=== PATIENT | male | born 1985 | race Caucasian/White ===

== ENCOUNTER 2016-12-05 14:23 | Emergency (ER) | payer OTHER ==
[~2016-12-05] VITALS: Ht 190.5 cm; Wt 190.5 kg
--- NOTE | ~2016-12-05 | CR151 ---
[facility]. [facility] A Service of [facility] & [facility] RADIOLOGY TEXT RESULTS PATIENT: GAYATRI HARMAN LOCATION: SED : [birth year] UNIT #: [id number] AGE: [address]: Jaimee Pinedo SEX: M ORDER DR: [id number] [address] [address] [id number] E MR#: [id number] Acc #: [id number] NAME: GAYATRI HARMAN : 1985 SEX: M STUDY DATE/TIME: 12/05/2016 15:08 UNIT: SED ROOM: STUDY DESCRIPTION: CR Hip Min 2 Views Rt Attending Physician: Jaimee Pinedo Pa-C Ordering Physician: Physician Non-Staff Primary Care Physician: No Primary Care Physician MEDICAL IMAGING REPORT This report is preliminary unless electronic signature is present. EXAM Right hip 11/25/[address] [facility] [place], [place]. HISTORY 30-year-old male patient right hip pain starting this a.m. FINDINGS AP pelvis includes 2 projections with frog-leg lateral view of the right hip. Pelvic bone structure is intact. Hip joints are preserved with no degenerative narrowing or marginal osteophyte formation. Mineralization is preserved throughout. I see no cystic erosions. There is no lytic or blastic appearance. Bilateral sacroiliac joints are preserved. Large body habitus noted. IMPRESSION Negative right hip. No acute pelvic finding. Large body habitus. Dictated by... Yazan Valdivia M.D. THIS IS AN ELECTRONICALLY VERIFIED REPORT Yazan Valdivia M.D. at 12/06/2016 10:29 AM CARLOS/irma TD: 12/06/2016 09:18 JOB #: [id number] MEDICAL IMAGING REPORT Page 1 of 1
[2016-12-05] MEDS ORDERED: TENORMIN50 MG (14:44)
== END 2016-12-05 16:12 | disposition home or self-care (01) ==
LOC: SED 14:23
DX: M25.551 Pain in right hip (principal); I12.9 Hypertensive chronic kidney disease with stage 1 through stage 4 chronic kidney disease, or unspecified chronic kidney disease; N18.9 Chronic kidney disease, unspecified; Z88.0 Allergy status to penicillin
CPT/HCPCS: 73502; 99283